=== PATIENT | female | born 1990 | race Asian ===

== ENCOUNTER 2016-11-23 00:41 | Emergency (ER) | payer OTHER ==
[~2016-11-23] VITALS: Ht 162.6 cm; Wt 62.9 kg
[~2016-11-23 00:41] MED LIST: OMEPRAZOLE40 M1 PO; VIENVA-28 TABL1 EACH PO
[2016-11-23] MEDS ORDERED: NARCAN4 MG NS (01:32)
[2016-11-23 02:13] VITALS: BP 114/74
== END 2016-11-23 02:18 | disposition home or self-care (01) ==
LOC: EME → EDBD 00:41 → EME 00:41
DX: T40.2X1A Poisoning by other opioids, accidental (unintentional), initial encounter (principal); K21.9 Gastro-esophageal reflux disease without esophagitis; F17.200 Nicotine dependence, unspecified, uncomplicated
CPT/HCPCS: 99281; 99285; J2310

== ENCOUNTER 2017-03-02 22:41 | Emergency (ER) | payer OTHER ==
[~2017-03-02] VITALS: Ht 162.6 cm; Wt 61.4 kg
[~2017-03-02 22:41] MED LIST changes: +NARCAN4 MG NS
[2017-03-02 23:42] LABS: HEMATOCRIT 41.9 % (36.0-46.0); MCH 27.6 PG (29.0-34.0); MCV 86.4 FL (83-99); MEAN PLAT.VOLUME 8.5 uM^3 (9.5-12.4); PLATELET COUNT 318 K/uL (156-360); RBC DIS.WIDTH-CV 12.8 % (11.8-14.6); RBC DIS.WIDTH-SD 40.4 % (39-53); RED BLOOD COUNT 4.85 M/uL (3.80-5.20); WHITE BLOOD COUNT 12.5 K/uL (4.1-10.2)
[2017-03-02 23:57] LABS: CHLORIDE 106 mEq/L (99-109); POTASSIUM 3.7 mEq/L (3.7-5.4); SODIUM 142 mEq/L (136-147)
[2017-03-02 23:58] LABS: GLUCOSE 93 mg/dL (70-99)
[2017-03-03] LABS: ANION GAP 10 MEQ/L (2-14)
[2017-03-03 00:02] LABS: GFR ESTIMATE (CALCULATED) 52 mL/min/; SERUM ETHYL ALCOHOL < 10 mg/dL
[2017-03-03 00:04] LABS: UREA NITROGEN (BUN) 16 mg/dL (9-23)
[2017-03-03 00:05] LABS: SALICYLATE < 5.0 MG/DL (15-30)
[2017-03-03 00:06] LABS: CREATINE KINASE 924 IU/L (1-294); TOTAL CK 924 IU/L (1-294)
[2017-03-03 00:11] LABS: QUANTITATIVE HCG < 4.0 MIU/ML
[2017-03-03 00:12] LABS: CK-MB 5.8 ng/mL (0.0-4.9)
[2017-03-03] MEDS ORDERED: NARCAN4 MG NS (05:36)
[2017-03-03 06:00] VITALS: BP 98/46
== END 2017-03-03 06:01 | disposition home or self-care (01) ==
LOC: EME → EDBD 22:41 → EME 22:41
PROVIDERS: Emergency Medicine
DX: T40.601A Poisoning by unspecified narcotics, accidental (unintentional), initial encounter (principal); F17.200 Nicotine dependence, unspecified, uncomplicated
CPT/HCPCS: 80048; 82550; 82553; 84702; 85027; 99281; 99285; G0480; J2310; J2405; J7030